=== PATIENT | female | born 1990 | race Two or more races ===

== ENCOUNTER 2021-05-03 08:09 | Inpatient (IN) ==
[2021-05-03] MEDS ORDERED: OXYTOCIN 30 UNITS/500 ML BAG IV PRN ×2 (08:38→17:27)
[2021-05-03 09:09] LABS: Hematocrit (blood only) 38.2 % (37-47); Hemoglobin 12.8 g/dL (12.0-16.0); Mean Corpuscular Hemoglobin 26.9 pg (25-34); Mean Corpuscular Hgb Conc 33.5 g/dL (32-36); Mean Corpuscular Volume 80.4 fL (80-100); Platelet Count 215 K/uL (130-400); RDW Coefficient of Variation 14.4 % (11.5-14.5); RDW Standard Deviation 42.1 fL (36.4-46.3); Red Blood Count 4.75 M/uL (4.2-5.4)
[2021-05-03] MEDS: LACTATED RINGER'S 1,000 ML IV PRN ×2 (09:10→10:19)
[2021-05-03] MEDS ORDERED: ePHEDrine sulfate 50 MG/ML AMP ONE (09:11)
[2021-05-03] MEDS ORDERED: SODIUM CHLORIDE 0.9% INJ 10 ML VIAL ONE (09:11)
[2021-05-03] MEDS ORDERED: BUPIVACAINE 0.25% 30 ML VIAL ONE (09:11)
[2021-05-03] MEDS ORDERED: fentaNYL 2MCG/ML ROPIVACAINE 1.25MG/ML 100 ML BAG EPI ONE (09:12)
[2021-05-03] MEDS ORDERED: fentaNYL citrate 100 MCG/2 ML VIAL ONE (09:12)
--- NOTE | 2021-05-03 09:19 | Anesthesiology Consultation ---
Date of Service May 03, 2021 Assessment & Plan (1) Encounter for pre-operative examination: Chart Review Chart Review: Acceptable Risk for Labor Epidural History Allergies Allergy/AdvReac Type Severity Reaction Status Date / Time No Known Allergies Allergy Verified 04/30/21 15:15 Medications Home Medications Medication Instructions Recorded Confirmed Last Taken prenat.vits,dulce,vuu-uvoi-jfnaa 1 tab PO DAILY 12/15/20 04/30/21 04/26/21 15:00 hydrocortisone 2.5 % topical cream 1 applic MA BID PRN #30 g 02/11/21 04/30/21 04/27/21 05:00 with perineal applicator (Anusol-HC) Past Medical History Medical History Patient denies significant medical history Past Family History Family History Denies family history of Ovarian cancer Breast cancer Colorectal cancer Past Surgical History Surgical History History of dental surgery No history of previous surgery Social History Smoking Status: Never smoker Hx Alcohol Use: No Hx Substance Use: No Physical Exam Vital Signs Last Vital Signs Pulse 86 05/03/21 08:37 BP 115/64 05/03/21 08:37 Testing Laboratory Results 05/03/21 08:52
--- NOTE | 2021-05-03 09:49 | History & Physical Report ---
Date of Service May 03, 2021 Assessment & Plan (1) Encounter for induction of labor: Plan: 30 yo 40 weeks and 3 days, doing well. -vital signs reviewed and WNL. (Tmax []) -Blood type AB+, GBS Negative, Rubella Immune -LR and Pitocin ordered. -Epidural if patient requests. -Monitor vital signs, heart monitor, contractions. Admission and Anticipated Discharge Date Admission Date: May 03, 2021 History of Present Illness Primary Care Provider: NO PCP 30 year old 40 weeks 3 days confirmed via LMP. Here for vaginal delivery. No complications to this . Patient attended OB appointments regularly. Patient taking vitamin. Contractions: 3-5 minutes apart since this morning. Fluid or blood: No fluid loss, just a small amount of blood tinge when wiping this morning. Movement: Yes Allergies Allergy/AdvReac Type Severity Reaction Status Date / Time No Known Allergies Allergy Verified 04/30/21 15:15 Home Medications Medication Instructions Recorded Confirmed Type prenat.vits,dulce,jpw-lbfy-vacst 1 tab PO DAILY 12/15/20 04/30/21 History hydrocortisone 2.5 % topical cream 1 applic AR BID PRN #30 g 02/11/21 04/30/21 Rx with perineal applicator (Anusol-HC) Patient History Medical History Patient denies significant medical history Surgical History History of dental surgery No history of previous surgery Family History Denies family history of Ovarian cancer Breast cancer Colorectal cancer Social History Smoking Status: Never smoker Hx Alcohol Use: No Hx Substance Use: No Preferred Language: Malay Communication Ability: Effective Nurses Assistant Required: Yes Beliefs That Will Affect Care: Pentecostal Pentecostal Beliefs: Prefers female providers when possible and Spiritual marital status: marital status details: Campbell Daron (28) [phone] Current Living Situation: Spouse Current Living Situation Comment: lives with spouse, no pets current occupational status: unemployed OB History First . Review of Systems Denies fever, chills, sweats Denies shortness of breath, difficulty breathing, chest pain, palpitations, chest pressure. Denies breast pain. Denies dysuria. Denies headache or changes in vision Physical Exam Physical Exam: General: Alert, oriented. No acute distress. Cardiac: Regular rate and rhythm, no murmurs/rubs/gallops. Respiratory: Clear to auscultation bilaterally a/p, no wheezes/rales/rhonchi. No increased work of breathing. Symmetrical chest rise. No respiratory distress. Pelvic: Dilation 7.0cm; Effacement 100; Station -1 per Nursing. Lower Extremities: No lower extremity edema or swelling. No deep calf pain. Cierra's negative bilaterally Baseline: 140 Variability: moderate Accelerations:Present Decelerations: Not Present Results & Data ([facility]) Vital Signs (Past 12 Hours) Vital Signs Pulse BP 05/03/21 08:37 86 115/64 Laboratory Results - Blood type AB+ - Antibody screen: Negative - Hgb: 12.8 - Hct: 38.2 - Wbc: 8.20 - Plt: 215 - Rubella Immune - VDRL/RPR: Non-reactive - Gonorrhea: Not detected - Chlamydia: Not detected - HIV: Negative - HbSAg: Negative - GBS: Negative - Glucose tolerance x 2: 155 Code Status & VTE Plan VTE Prophylaxis Plan VTE Prophylaxis will be ordered: No Supervising Physician Co-Signing Physician Notes Resident Physician Supervision Note: I interviewed and examined the patient. Discussed with Dr. Bee and agree with findings and plan as documented in the note. Any exceptions or clarifications are listed here: 30 yo G1 at 40 3/7 wga presents for scheduled induction. +FM and ctx, denied LOF, VB. On arrival, she as uncomfortable and nursing checked her and found her to be 7cm. She was admitted and received an epidural for pain control. Will recheck her in a few hours now that she has just gotten comfortable Documented By: Zohreh Goode MD Resident Activity Tracking Resident Involvement: Resident Care Provided Care Provided: OB Delivery
[2021-05-03] MEDS ORDERED: ONDANSETRON INJ 2 MG/ML 2 ML VIAL IV PRN (09:59)
[2021-05-03] MEDS ORDERED: NALOXONE HCL 1 MG in SODIUM CHLORIDE 0.9% 1000ML 1,000 ML IV PRN (09:59)
[2021-05-03] MEDS ORDERED: ePHEDrine sulfate 50 MG/ML AMP IV PRN (09:59)
[2021-05-03] MEDS ORDERED: NALOXONE HCL 0.4 MG/1 ML VIAL/CARP IV PRN (09:59)
[2021-05-03] MEDS ORDERED: fentaNYL 2MCG/ML ROPIVACAINE 1.25MG/ML 100 ML BAG EPI PRN (09:59)
--- NOTE | 2021-05-03 12:16 | Labor Progress Brief Note ---
Date of Service May 03, 2021 Subjective Comfortable w/ epidural Assessment & Plan (1) Supervision of normal first : Plan: 30 y/o G1 at 40 3/7 wga presents in labor VSS Fetus cat 1 Labor - s/p arom, continue expectant management GBS neg epidural in place Admission and Anticipated Discharge Date Admission Date: May 03, 2021 Physical Exam Genitourinary: Manual OB Exam: + cervical dilation (8-9), + cervical effacement 90%, + station + 1 and + amniotic fluid (arom clear) OB Exam Monitor Tracing: + external FHT monitor used, + external uterine monitor used (q2-4) and + category I (140/mod/+accel/-decel) Results & Data ([facility]) Vital Signs (Past 12 Hours) Vital Signs Temp Pulse Resp BP Pulse Ox 05/03/21 12:10 77 100 05/03/21 12:06 83 102/61 05/03/21 12:05 81 99 05/03/21 12:00 79 100 05/03/21 11:55 77 100 05/03/21 11:50 69 99 05/03/21 11:49 72 96/55 L 05/03/21 11:45 68 100 05/03/21 11:40 80 100 05/03/21 11:35 71 100 05/03/21 11:34 80 100/63 05/03/21 11:30 69 100 05/03/21 11:25 77 99 05/03/21 11:20 67 103/64 100 05/03/21 11:15 73 100 05/03/21 11:10 78 99 05/03/21 11:05 76 99 05/03/21 11:04 81 96/64 L 05/03/21 11:00 78 100 05/03/21 10:55 71 100 05/03/21 10:53 98.2 F 20 05/03/21 10:50 72 100 05/03/21 10:49 73 94/58 L 05/03/21 10:45 66 100 05/03/21 10:40 69 100 05/03/21 10:35 71 100 05/03/21 10:33 71 92/51 L 05/03/21 10:30 76 100 05/03/21 10:25 81 99 05/03/21 10:20 76 100 05/03/21 10:15 80 100 05/03/21 10:12 75 91/55 L 05/03/21 10:10 74 100 05/03/21 10:06 82 91/52 L 05/03/21 10:05 81 85/52 L 99 05/03/21 10:03 74 94/50 L 05/03/21 10:00 87 100 05/03/21 09:55 80 100 05/03/21 09:50 91 H 100 05/03/21 09:45 95 H 100 05/03/21 09:40 93 H 100 05/03/21 08:37 86 115/64 Coding Level of Care Code None Diagnoses Supervision of normal first Z34.00
--- NOTE | 2021-05-03 16:35 | Delivery Summary ---
Vaginal Delivery Summary Date of Service May 03, 2021 Vaginal Delivery Summary and 2nd Degree LAC PREOPERATIVE DIAGNOSIS: 1. Single intrauterine at 40 3/7 wga 2. Labor POSTOPERATIVE DIAGNOSIS: 1. Single intrauterine at 40 3/7 wga 2. Labor 3. Delivered PROCEDURE: 1. Normal spontaneous vaginal delivery. SURGEON: Zohreh Goode MD ANESTHESIA: Epidural. ESTIMATED BLOOD LOSS: 300 mL FLUIDS: Continuous LR. URINE OUTPUT: None. COMPLICATIONS: None. CONDITION: Stable. INDICATIONS: 30 y/o G1 at 40 3/7 wga presented for planned induction of labor however was found to be in labor and 7cm on arrival. She received an epidural for pain control and underwent artificial rupture of membranes. She then progressed to complete and desired to push FINDINGS: A viable female , weight pending with Apgars of 8 and 9 at 1 and 5 minutes respectively. SPECIMEN: Cord blood OPERATIVE REPORT: The patient progressed to 10 cm, 100% effaced and +2 station, pushed over intact perineum with anesthesia to deliver a viable female infant, weight and Apgars as above. Head of delivered in CECILIO position. No nuchal cord was present. Body and shoulders were delivered without difficulty. was delivered to maternal abdomen and nursing staff. Delayed cord clamping was performed for 60 seconds. Cord was clamped and cut. Cord blood was obtained. Placenta delivered spontaneously intact with 3-vessel cord. IV oxytocin and fundal massage were given for excellent hemostasis. Vagina, cervix, perineum, and placenta were inspected. A second degree laceration was noted and repaired using 3-0 Vicryl and there was excellent hemostasis. Sponge and needle counts correct x2. No sponges were left behind. Mother and stable in immediate period. [facility] [place] Delivery Charge Vaginal Delivery Codes: 49882 global code for the antepartum, delivery, and post- Delivery Type Details: and 2nd Degree LAC
[2021-05-03] MEDS ORDERED: bisacodyL 10 MG SUPP PR PRN (17:27)
[2021-05-03] MEDS ORDERED: DIPHTHERIA/TETANUS/PERTUSSIS 0.5 ML SYR/VIAL IM ONE (17:27)
[2021-05-03] MEDS ORDERED: SUPERCREAM 0.870% 15 GM JAR EXT PRN (17:27)
[2021-05-03] MEDS ORDERED: BENZOCAINE 20% AER SPR 82.5 GM CAN EXT PRN (17:27)
[2021-05-03] MEDS ORDERED: HYDROCORTISONE ACETATE 25 MG SUPP PR PRN (17:27)
[2021-05-03] MEDS: IBUPROFEN 600 MG TAB PO PRN (18:53)
--- NOTE | 2021-05-03 19:39 | Anesthesia Procedure Note ---
Date of Service May 03, 2021 Anesthesia Post Epidural Note Vital Signs Vital Signs: Temp Pulse Resp BP Pulse Ox 36.8 C 85 20 113/61 99 05/03/21 10:53 05/03/21 18:27 05/03/21 10:53 05/03/21 18:27 05/03/21 16:25 Notes Mental Status: alert / awake / arousable and participated in evaluation Nausea / Vomiting: adequately controlled Pain: adequately controlled Airway Patency, RR, SpO2: stable & adequate BP & HR: stable & adequate Hydration State: stable & adequate Neuraxial Anesthesia: was administered and sensory block is resolving Anesthetic Complications: no major complications apparent Epidural: Removed without complications and With tip intact
[2021-05-03] MEDS: DOCUSATE SODIUM 100 MG CAP PO SCH (21:22)
[2021-05-04] MEDS: IBUPROFEN 600 MG TAB PO PRN ×4 (05:18→23:00)
--- NOTE | 2021-05-04 05:58 | Obstetrical Progress Note ---
Date of Service <Sarath Bee DO - Last Filed: 05/04/21 07:17> May 04, 2021 Assessment & Plan <Sarath Bee DO - Last Filed: 05/04/21 07:17> (1) Encounter for care and examination after delivery: 30 yo post day 1 from vaginal delivery, doing well. -Continue routine post care. - vital signs reviewed and WNL. (Tmax 37.3) -Blood type AB+, GBS negative, Rubella Immune -Encourage ambulation, monitor and control pain with Motrin, tylenol PRN, resume regular diet, monitor lochia. -encourage breast feeding. -hemoglobin 12.8 yesterday. <Zohreh Goode MD - Last Filed: 05/04/21 08:11> (1) Encounter for care and examination after delivery: Subjective <Sarath Bee DO - Last Filed: 05/04/21 07:17> Ambulation: ambulating normally Voiding: no voiding problems Passing Gas:: Yes Diet Tolerance:: regular diet Lochia:: Small Feeding Type:: breast feeding Current Pain Level(1-10): 0 Review of Systems Denies fever, chills, sweats Denies shortness of breath, difficulty breathing, chest pain, palpitations, chest pressure. Denies breast pain. Denies dysuria. Denies headache or changes in vision Physical Exam <Sarath Bee DO - Last Filed: 05/04/21 07:17> General: Alert, oriented. No acute distress. Cardiac: Regular rate and rhythm, no murmurs/rubs/gallops. Respiratory: Clear to auscultation bilaterally a/p, no wheezes/rales/rhonchi. No increased work of breathing. Symmetrical chest rise. No respiratory distress. Abdomen: Soft, nontender, nondistended. Bowel sounds present. Uterus: Uterine fundus firm, palpable 1 cm below umbilicus. Lower Extremities: No lower extremity edema or swelling. No deep calf pain. Cierra's negative bilaterally Results & Data ([facility]) <Sarath Bee DO - Last Filed: 05/04/21 07:17> Vital Signs (Past 12 Hours) Vital Signs Temp Pulse Pulse Resp BP BP Pulse Ox 05/03/21 23:00 36.9 C 67 16 97/66 L 98 05/03/21 19:00 37.3 C 77 16 95/60 L 97 05/03/21 18:27 85 113/61 05/03/21 18:15 86 118/57 L 05/03/21 18:00 74 120/58 L <Zohreh Goode MD - Last Filed: 05/04/21 08:11> Co-Signing Physician Notes Resident Physician Supervision Note: I interviewed and examined the patient. Discussed with Dr. Bee and agree with findings and plan as documented in the note. Any exceptions or clarifications are listed here: PP1 s/p , doing well. VSS, exam benign and wnl. Pt notes some pain at epidural site, just got ibuprofen/tylenol so will continue to monitor Documented By: Zohreh Goode MD Resident Activity Tracking <Sarath Bee DO - Last Filed: 05/04/21 07:17> Resident Involvement: Resident Care Provided Care Provided: OB Delivery
[2021-05-04] MEDS: DOCUSATE SODIUM 100 MG CAP PO SCH ×2 (08:47→21:02)
[2021-05-04] MEDS: PRENATAL VITAMIN 1 TAB PO SCH (08:47)
[2021-05-04 11:16] LABS: Hematocrit (blood only) 35.1 % (37-47); Hemoglobin 11.8 g/dL (12.0-16.0); Mean Corpuscular Hemoglobin 27.3 pg (25-34); Mean Corpuscular Hgb Conc 33.6 g/dL (32-36); Mean Corpuscular Volume 81.1 fL (80-100); Mean Platelet Volume 10.1 fL (7.4-10.4); Platelet Count 223 K/uL (130-400); RDW Coefficient of Variation 14.5 % (11.5-14.5); RDW Standard Deviation 42.9 fL (36.4-46.3); Red Blood Count 4.33 M/uL (4.2-5.4); White Blood Count 12.29 K/uL (4.8-10.8)
[2021-05-04] MEDS: ACETAMINOPHEN 325 MG TAB PO PRN ×2 (14:32→23:00)
[2021-05-04] MEDS ORDERED: bisacodyL 5 MG TABEC PO SCH (20:00)
[2021-05-05 01:53] VITALS: TEMP 98.1
--- NOTE | 2021-05-05 06:27 | Obstetrical Progress Note ---
Date of Service <Sarath Bee DO - Last Filed: 05/05/21 07:27> May 05, 2021 Assessment & Plan <Sarath Bee DO - Last Filed: 05/05/21 07:27> (1) Encounter for care and examination after delivery: 30 yo post day 2 from vaginal delivery, doing well. -Continue routine post care. - vital signs reviewed and WNL. (Tmax 37.3) -Blood type AB+, GBS negative, Rubella Immune -Encourage ambulation, monitor and control pain with Motrin, tylenol PRN, resume regular diet, monitor lochia. -encourage breast feeding. -Discussed discharge with patient today. Patient will follow up with Dr. Goode in the office in 6 weeks for post check. <Pham Zayas, - Last Filed: 05/05/21 07:54> (1) Encounter for care and examination after delivery: Subjective <Sarath Bee DO - Last Filed: 05/05/21 07:27> Ambulation: ambulating normally Voiding: no voiding problems Passing Gas:: Yes Diet Tolerance:: regular diet Lochia:: Small Feeding Type:: breast feeding Current Pain Level(1-10): 0 Review of Systems Denies fever, chills, sweats Denies shortness of breath, difficulty breathing, chest pain, palpitations, chest pressure. Denies breast pain. Denies dysuria. Denies headache or changes in vision Physical Exam <Sarath Bee DO - Last Filed: 05/05/21 07:27> General: Alert, oriented. No acute distress. Cardiac: Regular rate and rhythm, no murmurs/rubs/gallops. Respiratory: Clear to auscultation bilaterally a/p, no wheezes/rales/rhonchi. No increased work of breathing. Symmetrical chest rise. No respiratory distress. Abdomen: Soft, nontender, nondistended. Bowel sounds present. Uterus: Uterine fundus firm, palpable 2 cm below umbilicus. Lower Extremities: No lower extremity edema or swelling. No deep calf pain. Cierra's negative bilaterally Results & Data ([facility]) <Sarath Bee DO - Last Filed: 05/05/21 07:27> Vital Signs (Past 12 Hours) Vital Signs Temp Pulse Resp BP 05/05/21 00:00 36.7 C 80 18 114/67 <Pham Zayas DO - Last Filed: 05/05/21 07:54> Co-Signing Physician Notes Resident Physician Supervision Note: I interviewed and examined the patient. Discussed with Dr. Bee and agree with findings and plan as documented in the note. Any exceptions or clarifications are listed here: PPD#2 doing well. Reviewed DC instructions. Followup 6w PP. Documented By: Pham Zayas DO Resident Activity Tracking <Sarath Bee DO - Last Filed: 05/05/21 07:27> Resident Involvement: Resident Care Provided Care Provided: OB Delivery
[2021-05-05] MEDS: DOCUSATE SODIUM 100 MG CAP PO SCH (08:12)
[2021-05-05] MEDS: IBUPROFEN 600 MG TAB PO PRN (08:13)
[2021-05-05] MEDS: PRENATAL VITAMIN 1 TAB PO SCH (08:13)
[2021-05-05 09:49] VITALS: BP 106/69; PULSE 74; O2SAT 98
== END 2021-05-05 17:00 | disposition home or self-care (01) | DRG 807 ==
LOC: 4S1 08:09 → 4S2 19:00

== ENCOUNTER 2024-08-01 14:41 | Inpatient (IN) ==
[2024-08-02] MEDS ORDERED: OXYTOCIN 30 UNITS/NSS 30 UNITS/500 ML BAG IV PRN ×2 (10:03→18:28)
[2024-08-02] MEDS ORDERED: LIDOCAINE 1% LOCAL 20 ML VIAL INFIL PRN (10:03)
--- NOTE | 2024-08-02 10:23 | History & Physical Report ---
Date of Service August 02, 2024 Assessment & Plan (1) Encounter for induction of labor: Plan Admit for iol. Plan for AROM, then eval need for pit Pt wants to avoid epidural d/t previous causing 2y of back pain Speaks minimal Syriac; can informally translate but may need Ukrainian asl interpreter Rh+, gbs neg, ri, VSS, FHT cat 1 Admission and Anticipated Discharge Date Admission Date: August 02, 2024 History of Present Illness Primary Care Provider: Kenton Jacobsen DO Patient is a 34yo currently at 39+ WGA (w GRETCHEN 08/05/24 as determined by LMP) who is here for iol. Reports her previous and delivery were uncomplicated. This was complicated by IUGR, resolved 06/21. She has had regular appointments with OB. She has been having some heartburn & palpitations. Denies fevers, chills, YEE, SOB, chest pain, leg swelling, or n/v exceeding baseline -related symptoms. Mild, irregular contractions. +FM. No LOF/VB External FHT and external uterine monitors in place Blood type: AB+ Antibody screen: Neg GBS: Neg Rubella: Immune VDRL/RPR: Neg Gonorrhea: Not detected Chlamydia: Not detected HIV: Non-reactive HbSAg: Non-reactive Allergies Allergy/AdvReac Type Severity Reaction Status Date / Time No Known Allergies Allergy Verified 08/01/24 15:30 Home Medications Medication Instructions Recorded Confirmed Type prenat.vits,dulce,vjq-ksra-bnzsd 1 tab PO DAILY 05/03/21 08/01/24 History calcium carbonate [Tums] PO 07/18/24 08/01/24 History breast pump #1 ea 08/01/24 08/01/24 Rx Past Med/Surg History Problem List (Updated 08/02/24 @ 10:31 by Gianni Tinsley MD) Encounter for induction of labor IUGR (intrauterine growth restriction) affecting care of mother Early stage of Encounter for anatomic survey Encounter for supervision of normal intrauterine in multigravida, antepartum Medical History Constipation Vaginal discharge Allergic dermatitis Dizziness Pain in female genitalia on intercourse Somatic dysfunction of rib Somatic dysfunction of pelvic region Somatic dysfunction of lumbar region Somatic dysfunction of thoracic region Somatic dysfunction of cervical region Fatigue Dizziness Back pain Anemia Surgical History History of dental surgery Family History Denies family history of Ovarian cancer Breast cancer Colorectal cancer Uterine cancer Social History Smoking Status: Never smoker Do You Dip or Chew Tobacco: No; Hx Alcohol Use: No Hx Substance Use: No Preferred Language: Ukrainian Communication Ability: Effective Communication Ability Comment: understands and speaks Syriac 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 Physical Exam 2 Physical Exam: General: Alert and oriented. No acute distress CV: Rate mildly elevated, regular rhythm, no murmurs. Respiratory: CTA bilaterally. No increased work of breathing. Symmetrical chest rise. Abdomen: Gravid: Soft, nontender upon palpation Pelvic: 5/80%/-[address] Tijerina Lower extremities: No LE edema. No deep calf pain. Cierra's negative bilaterally. Results & Data Results & Data Vital Signs (Past 12 Hours) Vital Signs Pulse BP 08/02/24 09:45 104 H 108/55 L Laboratory Results 08/02/24 10:16 Code Status & VTE Plan VTE Prophylaxis Plan VTE Prophylaxis will be ordered: No Supervising Physician Co-Signing Physician Notes Resident Physician Supervision Note: I interviewed and examined the patient. Discussed with Dr. Tinsley and agree with findings and plan as documented in the note. Any exceptions or clarifications are listed here: [None] Documented By: Katarina Boston MD, FACOG Resident Activity Tracking Resident Involvement: Resident Care Provided Care Provided: OB Delivery
[2024-08-02] MEDS: CALCIUM CARBONATE 500 MG CHEWABLE TAB PO PRN (10:40)
[2024-08-02 10:41] LABS: Hematocrit (blood only) 33.6 % (37.0-47.0); Hemoglobin 11.2 g/dl (12.0-16.0); Mean Corpuscular Hemoglobin 25.5 pg (25.0-34.0); Mean Corpuscular Hgb Conc 33.3 g/dL (32.0-36.0); Mean Corpuscular Volume 76.4 fL (80.0-100.0); Platelet Count 207 K/uL (130-400); RDW Coefficient of Variation 15.9 % (11.5-14.5); RDW Standard Deviation 42.5 fL (36.4-46.3); White Blood Count 9.45 K/ul (4.8-10.8)
[2024-08-02] MEDS: LACTATED RINGER'S 1,000 ML IV PRN (10:45)
--- NOTE | 2024-08-02 12:22 | Labor Progress Brief Note ---
Date of Service August 02, 2024 Subjective Reason For Note: Routine Evaluation AROM for small amount of clear fluid @ 1030 ctns Q 20 minutes FHT's decreased variability but otherwise reassuring will reevaluate ctns after 2-3 hours may need pitocin augmentation Assessment & Plan Admission and Anticipated Discharge Date Admission Date: August 02, 2024 Results & Data Vital Signs (Past 12 Hours) Vital Signs Temp Pulse Resp BP O2 Del Method 08/02/24 11:30 18 08/02/24 11:30 18 08/02/24 11:04 98.1 F 90 16 99/53 L 08/02/24 10:13 98.1 F 104 H 18 108/55 L Room Air 08/02/24 10:00 16 08/02/24 10:00 16 08/02/24 09:45 104 H 108/55 L Coding Level of Care Code 77012 SUB INP/OBS CARE
[2024-08-02] MEDS: FAMOTIDINE 20 MG TAB PO ONE (12:43)
[2024-08-02] MEDS: OXYTOCIN 30 UNITS/NSS 30 UNITS/500 ML BAG IV PRN (14:43)
[2024-08-02] MEDS: BUTORPHANOL TARTRATE 1 MG/ML VIAL IV PRN (16:33)
[2024-08-02] MEDS ORDERED: bisacodyL 10 MG SUPP PR PRN (18:28)
[2024-08-02] MEDS ORDERED: oxyCODONE/ACETAMINOPHEN 5mg/325mg TAB PO PRN (18:28)
[2024-08-02] MEDS ORDERED: ACETAMINOPHEN 325 MG TAB PO PRN (18:28)
[2024-08-02] MEDS ORDERED: HYDROCORTISONE ACETATE 25 MG SUPP PR PRN (18:28)
[2024-08-02] MEDS: IBUPROFEN 600 MG TAB PO PRN (18:51)
--- NOTE | 2024-08-02 19:28 | Delivery Summary ---
Vaginal Delivery Summary Date of Service August 02, 2024 Vaginal Delivery Summary [facility] Patient is a 34-year-old -0-0-1 female who presented for induction of labor at 39-4/7 weeks. Induction was initially attempted with rupture of membranes. However there was only a small amount of fluid and only irregular contractions.. She then required augmentation with Pitocin. She progressed to full dilation with the urge to push. She pushed effectively over intact perineum for delivery of a viable male . After the head was delivered, nuchal cord x 3 was reduced. The posterior arm then delivered next, followed by the rest of the . He was placed on the mother's abdomen for further stimulation and drying. After 1 minute the cord was clamped and cut. He was taken to the baby bed for further stimulation because of poor tone. After cord blood was obtained, the placenta was expressed intact with a three-vessel cord. bleeding was controlled with fundal massage and dilute Pitocin. Perineum was noted to be intact. At this point the baby was able to do skin to skin. QBL was 250 mL. Mother and were doing well after delivery. [facility] Vaginal Delivery Charge Delivery Type Details: [facility]
[2024-08-02] MEDS: BENZOCAINE 20% SPRY 85 APPLN/85 GM CAN EXT PRN (19:43)
[2024-08-02] MEDS: DOCUSATE SODIUM 100 MG CAP PO SCH (21:19)
[2024-08-03 07:38] LABS: Hematocrit (blood only) 31.3 % (37.0-47.0); Hemoglobin 10.5 g/dl (12.0-16.0); Mean Corpuscular Hemoglobin 25.8 pg (25.0-34.0); Mean Corpuscular Hgb Conc 33.5 g/dL (32.0-36.0); Mean Corpuscular Volume 76.9 fL (80.0-100.0); Mean Platelet Volume 11.1 fL (9.4-12.4); Platelet Count 200 K/uL (130-400); RDW Standard Deviation 42.8 fL (36.4-46.3); Red Blood Count 4.07 M/uL (4.20-5.40); White Blood Count 11.36 K/ul (4.8-10.8)
--- NOTE | 2024-08-03 07:46 | Obstetrical Progress Note ---
Date of Service August 03, 2024 Assessment & Plan (1) Encounter for care and examination after delivery: satisfactory exam continue current care plan Subjective Ambulation: ambulating normally Voiding: no voiding problems Passing Gas:: Yes Diet Tolerance:: regular diet Lochia:: Small Feeding Type:: breast feeding some soreness vaginally and from hemorrhoids- moderate cramping while nursing Review of Systems All systems reviewed & are unremarkable except as noted in HPI & below Physical Exam Psychiatric A+Ox3, euthymic affect Genitourinary OB Exam Abdomen: + fundal height Fundus: + firm and + relation to umbilicus (@U) Results & Data Vital Signs (Past 12 Hours) Vital Signs Temp Pulse Resp BP BP Pulse Ox O2 Del Method 08/03/24 04:36 97.5 F L 84 18 101/67 98 Room Air 08/03/24 00:30 98.1 F 94 H 18 98/61 L Room Air 08/02/24 20:25 18 100/62 08/02/24 19:55 18 105/64
[2024-08-03] MEDS: PRENATAL VITAMIN 1 TAB PO SCH (09:05)
[2024-08-03] MEDS: DIPHTHER/TETAN/PERTUS Vaccine (Tdap, Adol/Adult) 0.5mL IM ONE (15:27)
[2024-08-03] MEDS: ACETAMINOPHEN 325 MG TAB PO PRN (17:16)
[2024-08-03] MEDS: bisacodyL 5 MG TABEC PO SCH (20:01)
[2024-08-04 07:26] LABS: Hematocrit (blood only) 33.1 % (37.0-47.0); Hemoglobin 10.9 g/dl (12.0-16.0)
--- NOTE | 2024-08-04 08:09 | Obstetrical Progress Note ---
Date of Service August 04, 2024 Assessment & Plan (1) Encounter for care and examination after delivery: PPD#2 doing well. Breast pumping. Has constipation - taking PO medication, will add suppository per her request. Reviewed lab results with her - encourage continue vitamin through . 6w office followup PP. Rx to Meet. Subjective Ambulation: ambulating normally Voiding: no voiding problems Diet Tolerance:: regular diet Lochia:: Moderate Review of Systems All systems reviewed & are unremarkable except as noted in HPI & below Physical Exam Constitutional WD/WN, vitals as above no acute distress Respiratory normal respiratory effort Cardiovascular Rate/Rhythm: regular rate and regular rhythm Gastrointestinal (Abdomen) Inspection/Auscultation: abdomen normal to inspection; abdomen not distended Percussion/Palpation: abdomen soft Genitourinary OB Exam Abdomen: + fundal height Fundus: + firm; not tender Results & Data Vital Signs (Past 12 Hours) Vital Signs Temp Pulse Resp BP O2 Del Method 08/04/24 00:35 36.7 C 65 14 113/69 Room Air
[2024-08-04 09:10] VITALS: RESP 16; TEMP 97.9; O2SAT 97
[2024-08-04 12:33] VITALS: BP 101/67; PULSE 97
== END 2024-08-04 19:36 | disposition home or self-care (01) | DRG 807 ==
LOC: 4S1 08-02 09:34 → 4E2 08-02 21:22